=== PATIENT | female | born 1950 | race Caucasian/White ===

== ENCOUNTER 2018-03-18 10:08 | Day surgery (SDC) | payer BC ==
[2018-03-18] MEDS ORDERED: PROPOFOL 20 ML ×2 (11:51→12:01)
== END 2018-03-18 16:26 | disposition home or self-care (01) ==
LOC: GIL 10:08
DX: Z12.11 Encounter for screening for malignant neoplasm of colon (principal); K63.5 Polyp of colon; K29.70 Gastritis, unspecified, without bleeding; K21.9 Gastro-esophageal reflux disease without esophagitis; K44.9 Diaphragmatic hernia without obstruction or gangrene; K57.30 Diverticulosis of large intestine without perforation or abscess without bleeding; K64.8 Other hemorrhoids; E11.9 Type 2 diabetes mellitus without complications; I10 Essential (primary) hypertension; E66.9 Obesity, unspecified; Z68.30 Body mass index [BMI] 30.0-30.9, adult
CPT/HCPCS: 43239; 82962; 87081; 88305

== ENCOUNTER 2019-04-20 06:32 | Day surgery (SDC) | payer BC ==
[2019-04-20] MEDS: DICLOFENAC 0.1% 2.5 ML OPH OPER (08:19)
[2019-04-20] MEDS: CYCLOPENTOLATE/PHENYLEPH 2 ML OPH OPER (08:20)
[2019-04-20] MEDS: TROPICAMIDE 1% 15 ML OPH OPER (08:20)
[2019-04-20] MEDS: MOXIFLOXACIN 0.5% 3 ML OPH OPER (08:21)
[2019-04-20] MEDS: SOD CHLORIDE 0.9% 1,000 ML IV (08:21)
[2019-04-20] MEDS: CARBACHOL 0.01% 1.5 ML OPH INJ (09:17)
[2019-04-20] MEDS ORDERED: NA HYALURONATE/CHONDROITIN 0.5 ML SYG (09:17)
[2019-04-20] MEDS: DEXAMETHASONE 4 MG/ML 1 ML INJ (09:17)
[2019-04-20] MEDS ORDERED: LIDOCAINE 4% (MPF) 5 ML INJ (09:17)
[2019-04-20] MEDS: CEFAZOLIN 1 GM INJ (09:17)
[2019-04-20] MEDS ORDERED: PROPOFOL 20 ML (09:35)
[2019-04-20] MEDS ORDERED: ACETAMINOPHEN 325 MG TAB PO (10:30)
== END 2019-04-20 11:30 | disposition home or self-care (01) ==
LOC: SDS 06:32
DX: H25.12 Age-related nuclear cataract, left eye (principal); I10 Essential (primary) hypertension; E11.9 Type 2 diabetes mellitus without complications; E03.9 Hypothyroidism, unspecified; Z79.84 Long term (current) use of oral hypoglycemic drugs; Z79.4 Long term (current) use of insulin
CPT/HCPCS: 66984; 82962

== ENCOUNTER 2019-06-08 06:21 | Day surgery (SDC) | payer BC ==
[2019-06-08] MEDS ORDERED: MOXIFLOXACIN 0.5% 3 ML OPH (07:28)
[2019-06-08] MEDS ORDERED: CYCLOPENTOLATE/PHENYLEPH 2 ML OPH (07:28)
[2019-06-08] MEDS ORDERED: DICLOFENAC 0.1% 2.5 ML OPH (07:28)
[2019-06-08] MEDS ORDERED: TROPICAMIDE 1% 15 ML OPH (07:29)
[2019-06-08] MEDS: DICLOFENAC 0.1% 2.5 ML OPH OPER (07:32)
[2019-06-08] MEDS: TROPICAMIDE 1% 15 ML OPH OPER (07:32)
[2019-06-08] MEDS: CYCLOPENTOLATE/PHENYLEPH 2 ML OPH OPER (07:32)
[2019-06-08] MEDS: MOXIFLOXACIN 0.5% 3 ML OPH OPER (07:32)
[2019-06-08] MEDS ORDERED: CYCLOPENTOLATE/PHENYLEPH 2 ML OPH OPER (08:00)
[2019-06-08] MEDS ORDERED: MOXIFLOXACIN 0.5% 3 ML OPH OPER (08:00)
[2019-06-08] MEDS ORDERED: DICLOFENAC 0.1% 2.5 ML OPH OPER (08:00)
[2019-06-08] MEDS ORDERED: TROPICAMIDE 1% 15 ML OPH OPER (08:00)
[2019-06-08] MEDS ORDERED: EPINEPHrine 1 MG INJ (08:20)
[2019-06-08] MEDS ORDERED: GENTAMICIN 80 MG INJ (08:20)
[2019-06-08] MEDS ORDERED: EPINEPHrine 0.1 MG/ML SYG (08:20)
[2019-06-08] MEDS ORDERED: IPRATROPIUM (NEB) 0.5 MG/2.5 ML AMP HHN (08:30)
[2019-06-08] MEDS ORDERED: MEPERIDINE 25 MG INJ IV (08:30)
[2019-06-08] MEDS ORDERED: FENTAnyl 50 MCG/ML VIAL IV ×3 (08:30)
[2019-06-08] MEDS ORDERED: hydrALAzine 20 MG INJ IV (08:30)
[2019-06-08] MEDS ORDERED: HYDROmorphONE 1 MG/5 ML IV SYRINGE IV ×3 (08:30)
[2019-06-08] MEDS ORDERED: EPHEDrine 25 MG/5 ML SYG IV (08:30)
[2019-06-08] MEDS ORDERED: ONDANSETRON 4 MG INJ IV (08:30)
[2019-06-08] MEDS ORDERED: MIDAZOLAM 1 MG/ML 2 ML INJ IV (08:30)
[2019-06-08] MEDS ORDERED: OXYCODONE/ACETAMINOPHEN (5/325) TAB PO ×2 (08:30)
[2019-06-08] MEDS ORDERED: DIPHENHYDRAMINE 50 MG INJ IV (08:30)
[2019-06-08] MEDS ORDERED: ALBUTEROL 0.083% (NEB) 2.5 MG/3 ML AMP HHN (08:30)
[2019-06-08] MEDS ORDERED: TRIMETHOBENZAMIDE 100 MG/ML VIAL IM (08:30)
[2019-06-08] MEDS ORDERED: LABETALOL HCL 20MG INJ IV (08:30)
[2019-06-08] MEDS ORDERED: PROPOFOL 20 ML (08:36)
[2019-06-08] MEDS ORDERED: LIDOCAINE 100 MG SYRINGE (08:36)
[2019-06-08] MEDS ORDERED: hydrALAzine 20 MG INJ (08:41)
[2019-06-08] MEDS: CARBACHOL 0.01% 1.5 ML OPH INJ (08:54)
[2019-06-08] MEDS: DEXAMETHASONE 4 MG/ML 1 ML INJ (08:54)
[2019-06-08] MEDS: CEFAZOLIN 1 GM INJ (08:54)
[2019-06-08] MEDS: NA HYALURONATE/CHONDROITIN 0.5 ML SYG (08:55)
[2019-06-08] MEDS: LIDOCAINE 4% (MPF) 5 ML INJ (08:55)
[2019-06-08] MEDS: TETRACAINE 0.5% 4 ML OPH (08:56)
== END 2019-06-08 10:18 | disposition home or self-care (01) ==
LOC: SDS 06:21
DX: H25.11 Age-related nuclear cataract, right eye (principal); E11.9 Type 2 diabetes mellitus without complications; I10 Essential (primary) hypertension; E78.5 Hyperlipidemia, unspecified; Z79.4 Long term (current) use of insulin
CPT/HCPCS: 66984; 82962

== ENCOUNTER 2019-08-06 08:27 | Day surgery (SDC) | payer BC ==
[2019-08-06] MEDS ORDERED: PROPOFOL 60 ML (09:47)
[2019-08-06] MEDS ORDERED: PROPOFOL 200 MG INJ (09:47)
[2019-08-06] MEDS ORDERED: FENTAnyl 50 MCG/ML VIAL (09:47)
[2019-08-06] MEDS ORDERED: LIDOCAINE 100 MG SYRINGE (09:47)
== END 2019-08-06 11:53 | disposition home or self-care (01) ==
LOC: SDS 08:27 → GIL 11:53
DX: K29.50 Unspecified chronic gastritis without bleeding (principal); E11.9 Type 2 diabetes mellitus without complications; I10 Essential (primary) hypertension; E03.9 Hypothyroidism, unspecified; Z79.4 Long term (current) use of insulin
CPT/HCPCS: 43239; 82962; 88305; 88312